=== PATIENT | male | born 1985 | race Caucasian/White ===

== ENCOUNTER 2016-09-29 03:33 | Emergency (ER) | payer BC ==
[~2016-09-29] VITALS: Ht 180.3 cm; Wt 170.1 kg
[2016-09-29] MEDS ORDERED: LIDOCAINE 1% / SOD BICARB 8.4% 20 ML VIAL. IJ ONE (04:30)
[2016-09-29] MEDS ORDERED: BENZOCAINE ONE 20% MUCOSAL SPRAY. MM (04:30)
[2016-09-29] MEDS ORDERED: DEXAMETHASONE SOD PHOS 20 MG/5 ML VIAL. IV ONE (05:00)
[2016-09-29] MEDS ORDERED: AMPICILLIN/SULBACTAM 3 GM in IV NORMAL SALINE 100ML 100 ML IV ONE (05:00)
[2016-09-29 05:22] LABS: BASO % 0 % (0-3); EOS % 3 % (0-3); HEMATOCRIT 43.3 % (39.0-53.0); HEMOGLOBIN 14.3 g/dL (13.0-17.5); LYMPH # 2.7 x10^3/uL (1.0-4.8); LYMPH % 19 % (24-48); MEAN CORPUSCULAR HEMOGLOBIN 27 pg (25-35); MEAN CORPUSCULAR HGB CONC 33 g/dL (31-37); MEAN CORPUSCULAR VOLUME 82 fL (79-100); MONO % 6 % (0-9); NEUT % 72 % (31-73); PLATELET COUNT 283 x10^3/uL (140-400); RED BLOOD COUNT 5.26 x10^6/uL (4.30-5.70); RED CELL DISTRIBUTION WIDTH 14.2 % (11.5-14.5); WHITE BLOOD COUNT 14.2 x10^3/uL (4.0-11.0)
[2016-09-29 05:29] LABS: CALCIUM 8.7 mg/dL (8.5-10.1); CREATININE 0.9 mg/dL (0.7-1.3); GFR 98.4; POTASSIUM 4.2 mmol/L (3.5-5.1)
[2016-09-29] MEDS ORDERED: HYDROMORPHONE 2 MG/ML VIAL. IV PRN (05:30)
[2016-09-29 05:34] LABS: ALBUMIN 3.3 g/dL (3.4-5.0); ALBUMIN/GLOBULIN RATIO 0.7 (1.0-1.7); TOTAL BILIRUBIN 0.3 mg/dL (0.2-1.0)
--- NOTE | 2016-09-29 05:58 | PHYS DOC ---
Past Medical History Past Medical History: No Pertinent History Past Surgical History: Other Additional Past Surgical Histo: bilat ankle Alcohol Use: Rarely Drug Use: Marijuana Adult General Chief Complaint Chief Complaint: SORE THROAT HPI HPI 31-year-old male presenting to the emergency department with sore throat for the last 2 days. He has had trismus and pain with swallowing and voice change. He reports a muffled voice. He denies fevers or chills. He has pain in the throat that is sharp and burning worse with swallowing nonradiating and moderate. Review of Systems Review of Systems ROS negative for stridor. He reports being able to swallow his secretions. He denies difficulty breathing. He denies chest pain. Positive for neck swelling. All other review of systems is negative unless otherwise noted in history of present illness. Current Medications Current Medications Current Medications Medications (Trade) Dose Ordered Sig/Catie Start Time Stop Time Status Last Admin Dose Admin Ampicillin Sodium/ Sulbactam Sodium/ Sodium Chloride (Unasyn/Iv Sodium Chloride 0.9% 100ml) 100 ml @ 200 mls/hr 1X ONCE 09/29/16 05:00 09/29/16 05:29 DC 09/29/16 05:00 200 MLS/HR Benzocaine 1 spray 1 spray 1X ONCE 09/29/16 04:30 09/29/16 04:31 DC 09/29/16 04:40 1 SPRAY Dexamethasone Sodium Phosphate (Decadron) 10 mg 1X ONCE 09/29/16 05:00 09/29/16 05:01 DC 09/29/16 05:00 10 MG Hydromorphone HCl (Dilaudid) 0.5 mg PRN Q1HR PRN 09/29/16 05:30 09/29/16 05:50 0.5 MG Lidocaine/Sodium Bicarbonate (Buffered Lidocaine 1%) 20 ml 1X ONCE 09/29/16 04:30 09/29/16 04:31 DC 09/29/16 04:40 20 ML Ondansetron HCl (Zofran) 4 mg 1X ONCE 09/29/16 06:00 09/29/16 06:01 09/29/16 05:50 4 MG Allergies Allergies Allergies Coded Allergies Type Severity Reaction Last Updated Verified No Known Drug Allergies 09/29/16 No Physical Exam Physical Exam Constitutional: Well developed, well nourished, no acute distress, non-toxic appearance. Patient holds mouth open due to pain and has trismus. He is able to swallow secretions and is not drooling. His airway is patent and he is controlling his airway. HENT: Normocephalic, atraumatic, bilateral external ears normal, oropharynx moist, patient has swelling of the uvula and both tonsils including asymmetric swelling of the right upper tonsil area suggestive of peritonsillar abscess. Eyes: PERRLA, EOMI, conjunctiva normal, no discharge. [] Neck: Normal range of motion, no tenderness, supple, no stridor. Mild swelling more the right the left. Cardiovascular:Heart rate regular rhythm, no murmur Lungs & Thorax: Bilateral breath sounds clear to auscultation [] Abdomen: Bowel sounds normal, soft, no tenderness, no masses, no pulsatile masses. Skin: Warm, dry, no erythema, no rash. [] Back: No tenderness, no CVA tenderness. Extremities: No tenderness, no cyanosis, no clubbing, ROM intact, no edema. [] Neurologic: Alert and oriented X 3, normal motor function, normal sensory function, no focal deficits noted. [] Psychologic: Affect normal, judgement normal, mood normal. Current Patient Data Vital Signs Vital Signs Date Time Temp Pulse Resp B/P Pulse Ox O2 Delivery O2 Flow Rate FiO2 09/29/16 05:25 80 20 145/77 96 Room Air 09/29/16 03:51 97.8 97.8 Lab Values Laboratory Tests Test 09/29/16 04:40 White Blood Count 14.2x10^3/uL (4.0-11.0) H Red Blood Count 5.26x10^6/uL (4.30-5.70) Hemoglobin 14.3g/dL (13.0-17.5) Hematocrit 43.3% (39.0-53.0) Mean Corpuscular Volume 82fL (79-100) Mean Corpuscular Hemoglobin 27pg (25-35) Mean Corpuscular Hemoglobin Concent 33g/dL (31-37) Red Cell Distribution Width 14.2% (11.5-14.5) Platelet Count 283x10^3/uL (140-400) Neutrophils (%) (Auto) 72% (31-73) Lymphocytes (%) (Auto) 19% (24-48) L Monocytes (%) (Auto) 6% (0-9) Eosinophils (%) (Auto) 3% (0-3) Basophils (%) (Auto) 0% (0-3) Neutrophils # (Auto) 10.2x10^3uL (1.8-7.7) H Lymphocytes # (Auto) 2.7x10^3/uL (1.0-4.8) Monocytes # (Auto) 0.8x10^3/uL (0.0-1.1) Eosinophils # (Auto) 0.4x10^3/uL (0.0-0.7) Basophils # (Auto) 0.0x10^3/uL (0.0-0.2) Sodium Level 136mmol/L (136-145) Potassium Level 4.2mmol/L (3.5-5.1) Chloride Level 101mmol/L (98-107) Carbon Dioxide Level 27mmol/L (21-32) Anion Gap 8 (6-14) Blood Urea Nitrogen 9mg/dL (8-26) Creatinine 0.9mg/dL (0.7-1.3) Estimated GFR (Cockcroft-Gault) 98.4 BUN/Creatinine Ratio 10 (6-20) Glucose Level 149mg/dL (70-99) H Calcium Level 8.7mg/dL (8.5-10.1) Total Bilirubin 0.3mg/dL (0.2-1.0) Aspartate Amino Transferase (AST) 19U/L (15-37) Alanine Aminotransferase (ALT) 52U/L (16-63) Alkaline Phosphatase 85U/L (46-116) Total Protein 8.0g/dL (6.4-8.2) Albumin 3.3g/dL (3.4-5.0) L Albumin/Globulin Ratio 0.7 (1.0-1.7) L Laboratory Tests 09/29/16 04:40 Laboratory Tests 09/29/16 04:40 EKG EKG [] Radiology/Procedures Radiology/Procedures [] Course & Med Decision Making Course & Med Decision Making Pertinent Labs and Imaging studies reviewed. (See chart for details) 31-year-old gentleman presenting to the emergency department with a peritonsillar abscess. IV access obtained. Patient was given IV Decadron and Unasyn. CT of the neck was obtained. Peritonsillar abscess was attempted to be drained in the emergency department unfortunately without success. Patient was maintaining his airway and was stable. He was then transferred to [facility] with the transferring accepting physician being Dr. Lopez due to lack of otolaryngology coverage at our facility. Dragon Disclaimer Dragon Disclaimer This electronic medical record was generated, in whole or in part, using a voice recognition dictation system. Departure Departure Impression: Primary Impression: Peritonsillar abscess Additional Impression: Strep throat Disposition: 02 TRANSFER T-[facility] ([facility] ) Condition: IMPROVED Referrals: NO PCP (PCP) Problem Qualifiers JESSICA LOPEZ MD Sep 29, 2016 05:58
[2016-09-29] MEDS ORDERED: ONDANSETRON PF 4 MG/2 ML VIAL. IV ONE (06:00)
[2016-09-29 06:30] VITALS: BP 129/67
--- NOTE | 2016-09-29 08:08 | RAD ---
Neck soft tissue radiographs History: Neck pain with swelling. Comparison: None. Findings: AP and lateral views of the neck with attention to soft tissues. No soft tissue gas collection is identified. No focal prevertebral soft tissue swelling is appreciated. The visualized airway appears patent. There may be enlargement of the palatine tonsils. Impression: 1. There may be enlargement of the palatine tonsils. Correlate with physical examination. 2. No focal soft tissue gas collection is identified.
[2016-09-29 11:26] LABS: NEGATIVE OBC STREP NEG; POSITIVE OBC STREP POS
== END 2016-09-29 06:55 | disposition short-term general hospital (02) ==
LOC: ER 03:33
DX: J36 Peritonsillar abscess (principal); J02.0 Streptococcal pharyngitis; F15.90 Other stimulant use, unspecified, uncomplicated
CPT/HCPCS: 36415; 70360; 80053; 85027; 87880; 96365; 96375; 99285; J0295; J1100; J1170; J2405

== ENCOUNTER 2017-10-06 19:55 | Emergency (ER) | payer SELFPAY, BC ==
[2017-10-06 21:39] LABS: INFLUENZA A PATIENT NEGATIVE (NEGATIVE); INFLUENZA B PATIENT NEGATIVE (NEGATIVE); OBC FLU VALID
[2017-10-07 09:06] LABS: NEGATIVE OBC STREP NEG; POSITIVE OBC STREP POS
== END 2017-10-06 22:21 | disposition home or self-care (01) ==
LOC: ER 19:55
DX: B34.9 Viral infection, unspecified (principal); I10 Essential (primary) hypertension
CPT/HCPCS: 87070; 87804; 87804-59; 87880; 99284